=== PATIENT | male | born 1990 | race Caucasian/White ===

== ENCOUNTER → 2017-11-02 12:15 | Outpatient (CLI) | payer MEDICAID, SELFPAY ==
--- NOTE | 2017-11-02 12:21 | RAD_ITS ---
STUDY: X-RAY CHEST REASON FOR EXAM: Male, 27 years old. Cough. Chest congestion. TECHNIQUE: PA and lateral views of the chest. COMPARISON: None. FINDINGS: There is elevation of the right hemidiaphragm. Increased linear markings with areas of confluence in the right lower lobe. This may represent either atelectasis and/or early infiltrate. The left lung is clear. There is no demonstrated pleural abnormality. Normal size heart. Normal mediastinum and natalia. Normal visualized pulmonary arteries. Normal visualized aortic arch and descending thoracic aorta. Normal visualized thoracic spine. Normal visualized ribs, clavicles, and shoulders. There is no demonstrated abnormality of the visualized soft tissue structures of the upper abdomen. RAD/Chest PA and Lateral IMPRESSION: Elevation of the right hemidiaphragm with underlying atelectasis and/or infiltration at the right lung base. Electronically Signed: Eliel Garibay MD at 12:47 EDT Tel [phone], Service support ,
== END ==
LOC: MTRAD 12:19 → HPRAD 12:27
PROVIDERS: Family Provider Physician Assistant; PCP Physician Assistant; Visit Provider Physician Assistant Surgical
DX: R09.89 Other specified symptoms and signs involving the circulatory and respiratory systems (principal)
CPT/HCPCS: 71046

== ENCOUNTER → 2017-12-08 10:25 | Outpatient (CLI) | payer SELFPAY ==
--- NOTE | 2017-12-08 10:48 | RAD_ITS ---
STUDY: X-RAY CHEST REASON FOR EXAM: Male, 27 years old. Chronic cough. Shortness of breath. TECHNIQUE: PA and lateral views of the chest. COMPARISON: Comparison is made with prior study dated November 02, 2017. FINDINGS: Stable elevation of the right hemidiaphragm. Persistent increased markings at the right lung base. This may represent either infiltration, atelectasis and/or scarring. The left lung is clear. There is blunting of the left costophrenic angle. Normal size heart. Normal mediastinum and natalia. Normal visualized pulmonary arteries. Normal visualized aortic arch and descending thoracic aorta. Normal visualized thoracic spine. Normal visualized ribs, clavicles, and shoulders. There is no demonstrated abnormality of the visualized soft tissue structures of the upper abdomen. RAD/Chest PA and Lateral IMPRESSION: Stable elevation of the right hemidiaphragm with increased markings at the right lung base and blunting of the right costophrenic angle. Electronically Signed: Eliel Garibay MD at 11:10 EDT Tel [phone], Service support ,
== END ==
PROVIDERS: Family Provider Physician Assistant; Visit Provider Internal Medicine Critical Care Medicine
DX: J18.9 Pneumonia, unspecified organism (principal); R05 Cough
CPT/HCPCS: 71046

== ENCOUNTER → 2017-12-31 07:55 | Outpatient (CLI) | payer SELFPAY ==
--- NOTE | 2017-12-31 09:55 | PFT ---
INTRODUCTION: The patient is a 27-year-old male that presents for pulmonary function testing secondary to a diagnosis of cough. Respiratory therapy reports good patient effort. Bronchodilators were used during testing. INTERPRETATION: Forced expiration spirometry demonstrates no evidence of a large airways obstructive ventilatory defect. There was a significant response to aerosolized bronchodilators noted, based upon change in FEV1. Spirograms of good quality and plateau normally. The respiratory flow volume loop appears normal. Body plethysmography was performed and reveals a decreased TLC to 3.57 L, 54% of predicted, indicative of a severe restrictive ventilatory defect. The remainder of the lung volumes are symmetrically reduced. Diffusing capacity by single breath CO is mildly reduced at 63% of predicted. IMPRESSION: These pulmonary function studies demonstrate the presence of a severe restrictive ventilatory impairment with a mild reduction in diffusing capacity and significant bronchodilator response. Although clinical consideration could be given to that for underlying asthma, given the patient's bronchodilator response, one should also consider an underlying interstitial lung process, given the reduction in TLC and DLCO. There are no previous pulmonary function studies available for comparison.
== END ==
PROVIDERS: Family Provider Physician Assistant; PCP Physician Assistant; Visit Provider Nurse Practitioner Acute Care
DX: R05 Cough (principal); F17.200 Nicotine dependence, unspecified, uncomplicated
CPT/HCPCS: 94060; 94726; 94729

== ENCOUNTER 2018-02-22 08:14 | Emergency (ER) | payer SELFPAY ==
[2018-02-22 08:14] VITALS: BP 164/96; PULSE 64; RESP 20; TEMP 37.1; O2SAT 98; BMI 33.4
[2018-02-22 08:19] VITALS: O2SAT 98
--- NOTE | 2018-02-22 08:33 | ED.VISSUMM ---
- ER Visit Summary Date of Service: 02/22/18 Chief Complaint: Cough and wheezing History of Present Illness: The patient is a 27 M history of some component of asthma for which he uses an inhaler. Developed cough of clear phlegm in the last 3-4 days. With wheezing. No chest pain. No hemoptysis. No fever. Patient does smoke but is trying to quit. Physical Examination: Well-appearing male. Vital signs are stable. Afebrile. Pulse ox 98% on room air no signs of hypoxia. No distress. H EENT exam TMs not visualized due to wax. Posterior pharynx unremarkable. Moist and pink. Nasal congestion no purulent discharge. Neck nontender no lymphadenopathy. Lungs inspiratory and expiratory wheezing throughout. Equal and symmetrical. No rales or rhonchi. Heart regular rhythm rate about 70 no murmur. Abdomen soft nontender. Moving all 4 extremities. Neurovascularly intact. Test Results: EKG which showed a sinus rhythm rate is [address] or T-wave abnormalities. Emergency Department Course and Treatment: Patient has bronchitis or bronchospasm. He will be treated with DuoNeb and albuterol aerosols. Along with p.o. prednisone. Exam at 10 AM patient is doing well. Wheezing is resolved. He is comfortable being discharged home. Treatment Plan: Prednisone 40 mg a day for 10 days. Stop smoking. Use your inhaler as needed. Disposition: Discharge Impression: Bronchitis with bronchospasm This note was generated with [employer] dictation software. It may contain incorrect words, spelling, and punctuation that were not noted in review of the chart prior to signing ED Disposition - Plan for ED Patient: Disposition: Home or Assisted Living Chief Complaint: Shortness of Breath Instructions: ED Bronchitis Asthmatic Prescriptions: Prednisone [Deltasone] 40 mg PO DAILY #10 tab Referrals: Nicko Luis MD [STAFF PHYSICIAN] - 1 Week if not improving Additional Instructions: Absolutely stop smoking! Prednisone daily to decrease lung inflammation and wheezing. Usual inhaler 2 puffs every 2-4 hours as needed. Return if feeling worse or follow-up with the primary care referral Dr. Nicko Luis.
--- NOTE | 2018-02-22 08:39 | ED.DCSUM_ITS ---
- ER Visit Summary Date of Service: 02/22/18 Chief Complaint: Cough and wheezing History of Present Illness: The patient is a 27 M history of some component of asthma for which he uses an inhaler. Developed cough of clear phlegm in the last 3-4 days. With wheezing. No chest pain. No hemoptysis. No fever. Patient does smoke but is trying to quit. Physical Examination: Well-appearing male. Vital signs are stable. Afebrile. Pulse ox 98% on room air no signs of hypoxia. No distress. H EENT exam TMs not visualized due to wax. Posterior pharynx unremarkable. Moist and pink. Nasal congestion no purulent discharge. Neck nontender no lymphadenopathy. Lungs inspiratory and expiratory wheezing throughout. Equal and symmetrical. No rales or rhonchi. Heart regular rhythm rate about 70 no murmur. Abdomen soft nontender. Moving all 4 extremities. Neurovascularly intact. Test Results: EKG which showed a sinus rhythm rate is [address] or T- wave abnormalities. Emergency Department Course and Treatment: Patient has bronchitis or bronchospasm. He will be treated with DuoNeb and albuterol aerosols. Along with p.o. prednisone. Exam at 10 AM patient is doing well. Wheezing is resolved. He is comfortable being discharged home. Treatment Plan: Prednisone 40 mg a day for 10 days. Stop smoking. Use your inhaler as needed. Disposition: Discharge Impression: Bronchitis with bronchospasm This note was generated with [employer] dictation software. It may contain incorrect words, spelling, and punctuation that were not noted in review of the chart prior to signing ED Disposition - Plan for ED Patient: Disposition: Home or Assisted Living Chief Complaint: Shortness of Breath Instructions: ED Bronchitis Asthmatic Prescriptions: Prednisone [Deltasone] 40 mg PO DAILY #10 tab Referrals: Nicko Luis MD [STAFF PHYSICIAN] - 1 Week if not improving Additional Instructions: Absolutely stop smoking! Prednisone daily to decrease lung inflammation and wheezing. Usual inhaler 2 puffs every 2-4 hours as needed. Return if feeling worse or follow-up with the primary care referral Dr. Nicko Luis.
[2018-02-22] MEDS: predniSONE 20 MG Tablet 60 MG PO (08:44)
[2018-02-22 08:45] VITALS: PULSE 112; RESP 20
[2018-02-22] MEDS: Albuterol 2.5 MG/3 ML VIAL.NEB. INHALATION ×3 (08:45)
[2018-02-22] MEDS: Ipratropium/Albuterol Sulfate 3 ML AMPUL.NEB INHALATION (08:45)
--- NOTE | 2018-02-22 08:46 | ED.DEP ---
ED Disposition - Plan for ED Patient: Disposition: Home or Assisted Living Chief Complaint: Shortness of Breath Instructions: ED Bronchitis Asthmatic Prescriptions: Prednisone [Deltasone] 40 mg PO DAILY #10 tab Referrals: Nicko Luis MD [STAFF PHYSICIAN] - 1 Week if not improving Additional Instructions: Absolutely stop smoking! Prednisone daily to decrease lung inflammation and wheezing. Usual inhaler 2 puffs every 2-4 hours as needed. Return if feeling worse or follow-up with the primary care referral Dr. Nicko Luis.
[2018-02-22 10:14] VITALS: BP 136/84; PULSE 63; RESP 18; O2SAT 94
[2018-02-22 10:18] VITALS: BP 136/84; PULSE 63; RESP 18; O2SAT 94
== END 2018-02-22 10:19 | disposition home or self-care (01) ==
PROVIDERS: Emergency Provider Emergency Medicine
DX: J98.01 Acute bronchospasm (principal); J40 Bronchitis, not specified as acute or chronic; Z72.0 Tobacco use; Z79.899 Other long term (current) drug therapy
CPT/HCPCS: 94640; 99283

== ENCOUNTER 2018-08-05 20:15 | Emergency (ER) | payer SELFPAY ==
[2018-08-05] VITALS (7 sets, daily range): BP systolic 116–139; BP diastolic 57–114; PULSE 83–116; RESP 15–28; TEMP 37.2; O2SAT 85–97; BMI 33.4
--- NOTE | 2018-08-05 20:32 | ED.RN ---
PT PLACED ON 3L O2 VIA NC IN TRIAGE WITH IMPROVEMENT OF O2 SATURATION AT 90%.
--- NOTE | 2018-08-05 20:42 | RAD_ITS ---
STUDY: X-RAY CHEST REASON FOR EXAM: Male, 28 years old. Shortness of breath TECHNIQUE: PA and lateral views of the chest. COMPARISON: 12/08/2017 FINDINGS: Stable elevation right hemidiaphragm and atelectatic changes in the right base. There are superimposed monitor leads. Atelectasis in the upper lung parenchyma seen on lateral view. There is no demonstrated pleural abnormality. Normal size heart. Normal mediastinum and natalia. Normal visualized pulmonary arteries. Normal visualized aortic arch and descending thoracic aorta. Normal visualized thoracic spine. Normal visualized ribs, clavicles, and shoulders. There is no demonstrated abnormality of the visualized soft tissue structures of the upper abdomen. RAD/Chest PA and Lateral IMPRESSION: Stable elevated right hemidiaphragm with basilar atelectasis. New atelectasis in the upper lung parenchyma seen on lateral view. Electronically Signed: Fe Wong MD at 22:04 EST , Service support ,
[2018-08-05] MEDS: Ipratropium/Albuterol Sulfate 3 ML AMPUL.NEB INHALATION (20:47)
[2018-08-05 20:50] LABS: Absolute Lymphocyte Count 1.79 X10^3/ul (0.83-4.51); Basophil# 0.02 X10^3/uL; Basophil% 0.2 % (0-1); Eosinophil# 0.34 X10^3/uL; Eosinophils% 3.9 % (0-5); Hematocrit 49.1 % (40-54); Hemoglobin 16.2 g/dl (13.0-16.5); Lymphocyte # 1.79 X10^3/ul (4.0); Lymphocyte % 20.6 % (19-41); Mean Corpuscular Volume 96.8 fL (80-94); Mean Platelet Vol. 10.9 fl (6.2-12.0); Monocyte# 0.59 X10^3/uL; Monocyte% 6.8 % (0-10); Neutrophil # 5.95 X10^3/uL (2.7-7.7); Neutrophil % 68.3 % (47-70); Platelet Count 209 K/mm3 (150-450); RBC Distribution Width CV 12.9 % (11.6-14.6); RBC Distribution Width SD 45.4 fl (35.1-43.9); Red Blood Count 5.07 M/mm3 (4.6-6.2); White Blood Count 8.7 K/mm3 (4.4-11.0)
[2018-08-05] MEDS: predniSONE 20 MG Tablet 60 MG PO (20:54)
[2018-08-05 20:55] LABS: POSITIVE COUNT NO; POSITIVE DIFFERENTIAL NO; POSITIVE MORPHOLOGY NO
[2018-08-05 21:04] LABS: Anion Gap 6 (5-15); BUN 12 mg/dL (7-18); BUN/Creat Ratio 11.3 RATIO (10-20); Calcium,Total 8.5 mg/dL (8.5-10.1); Chloride 107 mmol/L (98-107); Creatinine, Serum 1.06 mg/dL (0.70-1.30); EST Glomerular Filtration Rate 87 mL/min (>60); Est Glom Filt Rate - Afr Amer 105 mL/min (>60); Estimated Creatinine Clearance 98.58 ml/min; Glucose 128 mg/dL (74-106); Potassium 4.6 mmol/L (3.5-5.1); Sodium Level 136 mmol/L (136-145)
[2018-08-05] MEDS: Albuterol 2.5 MG/3 ML VIAL.NEB. INHALATION (21:50)
--- NOTE | 2018-08-05 22:28 | ED.VISSUMM ---
- ER Visit Summary Date of Service: 08/05/18 Chief Complaint: Cough and congestion History of Present Illness: The patient is a 28 M who presents with cough and congestion that has been getting worse over the past 2 days. Patient states he feels like he is having some tightness in his chest. Patient states his breathing is worse with exertion. Patient states he is coughing up clear and yellow sputum. Patient admits to some ear pain, sore throat, and rhinorrhea. Patient also admits to subjective chills. Patient has a history of asthma and has been using his inhaler with minimal relief. Physical Examination: Vital signs are stable except for tachycardia of 116 and a tachypnea of 28. Pulse oximeter is 87% on room air. Patient is in no acute distress. Oral mucosa is pink and moist. Neck is supple. Trachea is midline. There is no JVD noted. Heart was regular and tachycardic. Lungs showed diffuse expiratory wheezing. There is good respiratory effort noted. Abdomen is soft and nontender. Cranial nerves II through XII are intact. There are no focal motor or sensory deficits noted. The remaining physical exam is within normal limits. Test Results: CBC and basic metabolic profile were within normal limits. PA and lateral chest x-ray was obtained. There is atelectasis but no acute infiltrate. Emergency Department Course and Treatment: Patient was given a DuoNeb aerosol here initially. Patient was given a repeat albuterol aerosol. Patient was given prednisone. Patient's oxygen was turned off. Patient's oxygen saturation dropped back down into the 80s. Case was discussed with the hospitalist. He will admit the patient for observation. Disposition: Admit for observation Impression: 1. Asthma exacerbation 2. Hypoxia This note was generated with [employer] dictation software. It may contain incorrect words, spelling, and punctuation that were not noted in review of the chart prior to signing ED Disposition - Plan for ED Patient: Disposition: Acute Care Hospital [facility] Diagnosis: Asthma exacerbation Instructions: ED COPD Flare Prescriptions: Prednisone [Deltasone] 60 mg PO DAILY 5 Days #15 tab Referrals: Care Physician,No Primary [Primary Care Provider] -
--- NOTE | 2018-08-05 22:34 | ED.DCSUM_ITS ---
- ER Visit Summary Date of Service: 08/05/18 Chief Complaint: Cough and congestion History of Present Illness: The patient is a 28 M who presents with cough and congestion that has been getting worse over the past 2 days. Patient states he feels like he is having some tightness in his chest. Patient states his breathing is worse with exertion. Patient states he is coughing up clear and yellow sputum. Patient admits to some ear pain, sore throat, and rhinorrhea. Patient also admits to subjective chills. Patient has a history of asthma and has been using his inhaler with minimal relief. Physical Examination: Vital signs are stable except for tachycardia of 116 and a tachypnea of 28. Pulse oximeter is 87% on room air. Patient is in no acute distress. Oral mucosa is pink and moist. Neck is supple. Trachea is midline. There is no JVD noted. Heart was regular and tachycardic. Lungs showed diffuse expiratory wheezing. There is good respiratory effort noted. Abdomen is soft and nontender. Cranial nerves II through XII are intact. There are no focal motor or sensory deficits noted. The remaining physical exam is within normal limits. Test Results: CBC and basic metabolic profile were within normal limits. PA and lateral chest x-ray was obtained. There is atelectasis but no acute infiltrate. Emergency Department Course and Treatment: Patient was given a DuoNeb aerosol here initially. Patient was given a repeat albuterol aerosol. Patient was given prednisone. Patient's oxygen was turned off. Patient's oxygen saturation dropped back down into the 80s. Case was discussed with the hospitalist. He will admit the patient for observation. Disposition: Admit for observation Impression: 1. Asthma exacerbation 2. Hypoxia This note was generated with [employer] dictation software. It may contain incorrect words, spelling, and punctuation that were not noted in review of the chart prior to signing ED Disposition - Plan for ED Patient: Disposition: Acute Care Hospital [facility] Diagnosis: Asthma exacerbation Instructions: ED COPD Flare Prescriptions: Prednisone [Deltasone] 60 mg PO DAILY 5 Days #15 tab Referrals: Care Physician,No Primary [Primary Care Provider] -
--- NOTE | 2018-08-05 22:51 | PCM.HP.STD ---
History of Present Illness The patient is a 28 year old M [] Past Medical History Medical History: Medical History (Last Reviewed 01/05/18 @ 10:35 by Gali Yarbrough FIRE PREVENTION RESEARCH ENGINEER-C) Pulmonary infiltrate in right lung on chest x-ray (Acute) R91.8 Chest congestion (Acute) R09.89 Chlamydia contact, untreated (Acute) Z20.2 Allergies No Known Allergies Allergy (Verified 08/05/18 20:17) Home Medications: Ambulatory Orders Medication Instructions Recorded albuterol sulfate HFA 90 2 puff INHALATION Q4H PRN #18 g 01/05/18 mcg/actuation aerosol inhaler fluticasone 200 mcg-vilanterol 25 1 inh INHALATION QDAY #60 ea 01/05/18 mcg/dose powder for inhalation Prednisone [Deltasone] 60 mg PO DAILY 5 Days #15 tab 08/05/18 Surgical History: Surgical History (Last Reviewed 01/05/18 @ 10:35 by Gali Yarbrough NP-C) hx of finger surgery Smoking Status: Never smoker Patient Problems: Active and Suspected Problems (Last Reviewed 01/05/18 @ 10:35 by Gali Yarbrough FI[employer] PREVENTION RESEARCH ENGINEER-C) Asthma exacerbation (Acute) - Physical Exam Vital Signs Temp Pulse Resp BP Pulse Ox 98.9 F 83 26 H 116/57 L 85 08/05/18 20:17 08/05/18 22:16 08/05/18 22:16 08/05/18 22:16 08/05/18 22:35 Oxygen Delivery Method Room Air Weight: 99.79 kg Body Mass Index (BMI) 33.4 Laboratory Tests Past 24 Hrs 08/05/18 08/05/18 20:32 20:32 WBC 8.7 RBC 5.07 Hgb 16.2 Hct 49.1 MCV 96.8 H MCH 32.0 MCHC 33.0 RDW 12.9 RDW Differential 45.4 H Plt Count 209 MPV 10.9 Immature Gran % (Auto) 0.200 Neut % (Auto) 68.3 Lymph % (Auto) 20.6 Greer % (Auto) 6.8 Eos % (Auto) 3.9 Baso % (Auto) 0.2 Absolute Neuts (auto) 6.0 Absolute Lymphs (auto) 1.79 Total Counted Not Reportable Sodium 136 Potassium 4.6 Chloride 107 Carbon Dioxide 23.0 Anion Gap 6 BUN 12 Creatinine 1.06 Estim Creat Clear Calc 98.58 Est GFR (MDRD) Af Amer 105 Est GFR (MDRD) Non-Af 87 BUN/Creatinine Ratio 11.3 Glucose 128 H Calcium 8.5 Assessment/Plan All Active Problems (Last Reviewed 01/05/18 @ 10:35 by Gali Yarbrough, FI[employer] PREVENTION RESEARCH ENGINEER-C) Asthma exacerbation (Acute) Daytime hypersomnia (Acute) Tobacco abuse (Acute) Depression (Acute) Asthma (Acute) Pulmonary infiltrate in right lung on chest x-ray (Acute) Chest congestion (Acute) Chlamydia contact, untreated (Acute)
== END 2018-08-05 23:34 | disposition left against medical advice (07) ==
PROVIDERS: Emergency Provider Emergency Medicine
DX: J45.901 Unspecified asthma with (acute) exacerbation (principal); R09.02 Hypoxemia; J02.9 Acute pharyngitis, unspecified; R51 Headache; H92.09 Otalgia, unspecified ear; Z72.0 Tobacco use
CPT/HCPCS: 71046; 80048; 85025; 94640; 99283

== ENCOUNTER 2018-08-07 16:10 | Inpatient (IN) | payer SELFPAY ==
[2018-08-05 20:17] VITALS: BMI 33.4
[2018-08-07] VITALS (10 sets, daily range): BP systolic 121–159; BP diastolic 63–95; PULSE 67–152; RESP 18–36; TEMP 36.8–37; O2SAT 86–96; BMI 34.4; BMI 33.5; BMI 33.6
--- NOTE | 2018-08-07 16:21 | EKG12_ITS ---
Test Reason : SOB Blood Pressure : / mmHG Vent. Rate : 135 BPM Atrial Rate : 135 BPM P-R Int : 126 ms QRS Dur : 076 ms QT Int : 282 ms P-R-T Axes : 056 -27 047 degrees QTc Int : 423 ms Sinus tachycardia Otherwise normal ECG Confirmed by GABRIELA HARRIS, SISSY ([id number]), photograph editor LILIAN PAIGE ([id number]) on 08/09/2018 5:00:51 PM Referred By: FREDY/RASHMI Confirmed By:SISSY OCHOA MD
--- NOTE | 2018-08-07 16:21 | RAD_ITS ---
STUDY: X-RAY CHEST REASON FOR EXAM: Male, 28 years old. Shortness of breath, worsening TECHNIQUE: AP COMPARISON: 08/05/2018 FINDINGS: The lungs continue to be underexpanded with reticular densities adjacent to the natalia and in the lung bases, similar since the prior study. Right hemidiaphragm remains elevated. There is no demonstrated pleural abnormality. Normal size heart. Normal mediastinum and natalia. Normal visualized pulmonary arteries. Normal visualized aortic arch and descending thoracic aorta. Normal visualized thoracic spine. Normal visualized ribs, clavicles, and shoulders. There is no demonstrated abnormality of the visualized soft tissue structures of the upper abdomen. RAD/Chest 1 View (Portable) IMPRESSION: 1. Stable exam. Hypoinflation and bilateral atelectasis. Electronically Signed: Keshawn Bronson MD at 16:45 EST , Service support ,
[2018-08-07] MEDS: Albuterol 2.5 MG/3 ML VIAL.NEB. INHALATION ×4 (16:25→18:45)
[2018-08-07] MEDS: MethylPREDNISolone 125 MG/2 ML Vial IV (16:25)
[2018-08-07] MEDS: Ipratropium/Albuterol Sulfate 3 ML AMPUL.NEB INHALATION (16:26)
[2018-08-07 16:40] LABS: Absolute Lymphocyte Count 2.02 X10^3/ul (0.83-4.51); Absolute Neutrophil Count 15.9 X10^3/uL (2.0-7.7); Basophil# 0.01 X10^3/uL; Basophil% 0.1 % (0-1); Hematocrit 49.1 % (40-54); Hemoglobin 16.1 g/dl (13.0-16.5); Lymphocyte # 2.02 X10^3/ul (4.0); Lymphocyte % 10.8 % (19-41); Mean Corp Hgb Conc 32.8 g/gl (32-36); Mean Corpuscular Hgb 31.1 pg (27.0-32.0); Mean Corpuscular Volume 94.8 fL (80-94); Mean Platelet Vol. 10.8 fl (6.2-12.0); Monocyte# 0.76 X10^3/uL; Monocyte% 4.1 % (0-10); Neutrophil # 15.85 X10^3/uL (2.7-7.7); Neutrophil % 84.6 % (47-70); Platelet Count 328 K/mm3 (150-450); RBC Distribution Width CV 12.6 % (11.6-14.6); RBC Distribution Width SD 43.7 fl (35.1-43.9); Red Blood Count 5.18 M/mm3 (4.6-6.2); White Blood Count 18.7 K/mm3 (4.4-11.0)
[2018-08-07 16:41] LABS: POSITIVE COUNT NO; POSITIVE DIFFERENTIAL NO; POSITIVE MORPHOLOGY NO
[2018-08-07 16:46] LABS: Anion Gap 10 (5-15); BUN 20 mg/dL (7-18); BUN/Creat Ratio 16.5 RATIO (10-20); Calcium,Total 9.5 mg/dL (8.5-10.1); Chloride 104 mmol/L (98-107); Creatinine, Serum 1.21 mg/dL (0.70-1.30); EST Glomerular Filtration Rate 75 mL/min (>60); Est Glom Filt Rate - Afr Amer 91 mL/min (>60); Estimated Creatinine Clearance 86.36 ml/min; Glucose 136 mg/dL (74-106); Potassium 4.1 mmol/L (3.5-5.1); Sodium Level 139 mmol/L (136-145)
[2018-08-07 17:11] LABS: Magnesium 1.9 mg/dL (1.6-2.6)
--- NOTE | 2018-08-07 17:47 | PCM.HP.STD ---
<Obdulio Vasquez - Last Filed: 08/07/18 17:47> Problem List (1) Asthma exacerbation Status: Acute (2) Obesity Status: Chronic (3) Tobacco abuse Status: Chronic (4) Depression Status: Chronic History of Present Illness Date of Admission: 08/07/18 Chief Complaint: SOB The patient is a 28 year old M with pmhx of asthma who presented to the ER with SOB. This began Wednesday. He reports feeling like he had a cold with congestion cough, sore throat, and chills. He came to the ER and left AMA with prednisone. He did take the prednisone but failed to improve and came back to the ER. He was hypoxic at 86% requiring 6 lpm to maintain good sats. He follows Dr. Terry for asthma. Normally he only uses an albuterol inhaler. He continues to smoke 1-2 packs per day. He reports his friend is sick with similar issues and he thinks they gave it to each other. [] Past Medical History Past Medical History (Chronic Problems): Chronic Problems (Last Reviewed 01/05/18 @ 10:35 by Gali Yarbrough NP-Manpreet) Obesity (Chronic) Tobacco abuse (Chronic) Depression (Chronic) Medical History: Medical History (Last Reviewed 01/05/18 @ 10:35 by Gali Yarbrough NP-C) Pulmonary infiltrate in right lung on chest x-ray (Acute) R91.8 Chest congestion (Acute) R09.89 Chlamydia contact, untreated (Acute) Z20.2 Allergies No Known Allergies Allergy (Verified 08/07/18 16:11) Home Medications: Ambulatory Orders Medication Instructions Recorded albuterol sulfate HFA 90 2 puff INHALATION Q4H PRN #18 g 01/05/18 mcg/actuation aerosol inhaler fluticasone 200 mcg-vilanterol 25 1 inh INHALATION QDAY #60 ea 01/05/18 mcg/dose powder for inhalation predniSONE tablet 60 mg PO DAILY #15 tab 08/05/18 Surgical History: Surgical History (Last Reviewed 01/05/18 @ 10:35 by Gali Yarbrough NP-C) hx of finger surgery Surgical History: no surgical history Psychiatric History: Depression Lives: With Family Smoking Status: Heavy Smoker (>10/day) Tobacco Use: Cigarettes Alcohol: Occasional Drugs: None - *Family History Maternal Family History: Family History (Last Reviewed 01/05/18 @ 10:35 by BRANDO Honeycutt) Other Cancer Colon cancer History Items: No pertinent history Paternal Family History: Family History (Last Reviewed 01/05/18 @ 10:35 by BRANDO Honeycutt) Other Cancer Colon cancer History Items: No pertinent history Review of Systems Constitutional: Reports: Chills. Denies: Fever, Weight Change HEENT: Denies: Head Aches, Sinus Congestion, Sinus Drainage Cardiovascular: Denies: Chest Pain, Edema, Heaviness, Light Headedness, Palpitations, Syncope Respiratory: Reports: Cough, Shortness of Breath, Shortness of breath at rest, Shortness of breath upon exertion, Wheezing. Denies: Sputum production Gastrointestinal: Denies: Abdominal Pain, Nausea, Vomiting Genitourinary: Denies: Dysuria Musculoskeletal: Denies: Joint Pain, Joint Tenderness Skin: Denies: Rash, Wounds Neurological: Denies: Numbness, Tingling, Focal weakness Psychiatric: Denies: Anxiety, Depression, Homicidal Ideations, Suicidal Ideations Hematologic/ Lymphatic: Denies: Easy Bruising, Easy Bleeding VTE Information - Inpt Only VTE Present on Admission: No VTE Mechan Device Prophylaxis: None VTE Pharm Prophylaxis ordered?: No Reason prophylaxis not ordered:: Procedure Not Indicated - Physical Exam General: Alert, Oriented x3, Cooperative HEENT: Atraumatic, PERRLA, EOMI, Normocephalic Neck: Supple, No JVD, Negative Carotid Bruits Lungs: Wheezes Cardiovascular: Regular rate, No murmurs Abdomen: Bowel Sounds Present, Soft, Non Tender, Obese Extremities: No edema, Capillary Refill Less than 3 Seconds Skin: No rashes, No breakdown Musculoskeletal: No Tenderness to Palpation of Joints or Extremities Neurological: Cranial nerves II-XII grossly intact Psych/Mental Status: Normal Affect, Appropriate, Alert and oriented to time, place, person, mood and affect Vital Signs Temp Pulse Resp BP Pulse Ox 98.5 F 111 H 21 H 121/73 H 95 08/07/18 17:30 08/07/18 17:30 08/07/18 17:30 08/07/18 17:30 08/07/18 17:30 Oxygen Flow Rate (L/min) 4 Oxygen Delivery Method Nasal Cannula Weight: 226 lb 3.108 oz Body Mass Index (BMI) 34.4 Laboratory Tests Past 24 Hrs 08/07/18 08/07/18 08/07/18 16:20 16:20 16:20 WBC 18.7 H RBC 5.18 Hgb 16.1 Hct 49.1 MCV 94.8 H MCH 31.1 MCHC 32.8 RDW 12.6 RDW Differential 43.7 Plt Count 328 MPV 10.8 Immature Gran % (Auto) 0.400 Neut % (Auto) 84.6 H Lymph % (Auto) 10.8 L [place] % (Auto) 4.1 Eos % (Auto) 0.0 Baso % (Auto) 0.1 Absolute Neuts (auto) 15.9 H Absolute Lymphs (auto) 2.02 Total Counted Not Reportable Sodium 139 Potassium 4.1 Chloride 104 Carbon Dioxide 25.0 Anion Gap 10 BUN 20 H Creatinine 1.21 Estim Creat Clear Calc 86.36 Est GFR (MDRD) Af Amer 91 Est GFR (MDRD) Non-Af 75 BUN/Creatinine Ratio 16.5 Glucose 136 H Calcium 9.5 Magnesium 1.9 Assessment/Plan All Active Problems (Last Reviewed 01/05/18 @ 10:35 by Gali Yarbrough NP-Manpreet) Asthma exacerbation (Acute) Daytime hypersomnia (Acute) Asthma (Acute) Pulmonary infiltrate in right lung on chest x-ray (Acute) Chest congestion (Acute) Chlamydia contact, untreated (Acute) 1. Acute hypoxic resp failure 2/2 Acute asthma exacerbation - hypoxic requiring 6 lpm to maintain good sats. admit to Med/Surg. continue IV solumedrol and aerosols. Likely viral syndrome based on hx. CXR neg. WBC elevated but he has been on prednisone. No fever. Add IS. 2. Nicotine abuse - heavy smoker 1-2 ppd. Patch if desired 3. Obesity - dietary eval DVT ppx: early ambulation This patient was seen by Obdulio Vasquez PA-C under the supervision of Dr. Cui. <Paxton Cui - Last Filed: 08/07/18 19:06> History of Present Illness The patient is a 28 year old M [] Past Medical History Medical History: Medical History (Last Reviewed 01/05/18 @ 10:35 by NATHANAEL HoneycuttC) Pulmonary infiltrate in right lung on chest x-ray (Acute) R91.8 Chest congestion (Acute) R09.89 Chlamydia contact, untreated (Acute) Z20.2 Allergies No Known Allergies Allergy (Verified 08/07/18 16:11) Surgical History: Surgical History (Last Reviewed 01/05/18 @ 10:35 by BRANDO Honeycutt) hx of finger surgery - *Family History Maternal Family History: Family History (Last Reviewed 01/05/18 @ 10:35 by BRANDO Honeycutt) Other Cancer Colon cancer Paternal Family History: Family History (Last Reviewed 01/05/18 @ 10:35 by BRANDO Honeycutt) Other Cancer Colon cancer - Physical Exam Vital Signs Temp Pulse Resp BP Pulse Ox 98.5 F 109 H 22 H 121/73 H 95 08/07/18 17:30 08/07/18 18:45 08/07/18 18:45 08/07/18 17:30 08/07/18 17:30 Oxygen Flow Rate (L/min) 4 Oxygen Delivery Method Nasal Cannula Weight: 226 lb 3.108 oz Body Mass Index (BMI) 34.4 Laboratory Tests Past 24 Hrs 08/07/18 08/07/18 08/07/18 16:20 16:20 16:20 WBC 18.7 H RBC 5.18 Hgb 16.1 Hct 49.1 MCV 94.8 H MCH 31.1 MCHC 32.8 RDW 12.6 RDW Differential 43.7 Plt Count 328 MPV 10.8 Immature Gran % (Auto) 0.400 Neut % (Auto) 84.6 H Lymph % (Auto) 10.8 L [place] % (Auto) 4.1 Eos % (Auto) 0.0 Baso % (Auto) 0.1 Absolute Neuts (auto) 15.9 H Absolute Lymphs (auto) 2.02 Total Counted Not Reportable Sodium 139 Potassium 4.1 Chloride 104 Carbon Dioxide 25.0 Anion Gap 10 BUN 20 H Creatinine 1.21 Estim Creat Clear Calc 86.36 Est GFR (MDRD) Af Amer 91 Est GFR (MDRD) Non-Af 75 BUN/Creatinine Ratio 16.5 Glucose 136 H Calcium 9.5 Magnesium 1.9 Code Visit Addendum: Dr. Cui I personally examined the patient and reviewed the chart. I agree with the above.-year-old male with a history of asthma, presented on Wednesday with an asthma exacerbation however left in the ER AMA because he had a work on Wednesday. He presents back to the hospital because he is continued shortness of breath. He was found to be very restricted and initially was on a Ventimask. He was given multiple albuterol inhalers as well as an Atrovent inhaler and a DuoNeb inhaler while here. He is also been taking steroids for the last day or so on top of the steroids he had gotten in the ER on Wednesday. However his restrict status was not improving as well much as was expected and therefore was also given a dose of mag sulfate in the ER. Will admit to PCU for further nebulizer therapies as well as IV Solu-Medrol. Inpatient E&M: 39947 Init Hosp L2
--- NOTE | 2018-08-07 18:32 | ED.DCSUM_ITS ---
- ER Visit Summary Date of Service: 08/07/18 Chief Complaint: Dyspnea History of Present Illness: The patient is a 28 M who presents the emergency department with respiratory distress. Patient has a history of asthma. He was seen in the emergency department on and signed out AGAINST MEDICAL ADVICE after his felt he required admission for hypoxemia. Today he is worsening and has not gotten relief with his inhalers. He is on Flovent and albuterol. He has been taking prednisone. No fevers. Physical Examination: Afebrile noted tachycardia hypoxemia and tachypnea Gen: Well-nourished well-developed Head: Normocephalic atraumatic Eyes: Perrl EOMI ENT: TMs clear no rhinorrhea moist mucous membranes Neck: Supple no lymphadenopathy no JVD nontender CVS: Regular rate tachycardia rhythm no murmurs normal S1-S2 Respiratory: Patient is in moderate to severe respiratory distress. Increased accessory muscle use. He has significantly diminished breath sounds with faint expiratory wheeze Abdomen: Soft nontender nondistended normal bowel sounds no masses Back: Nontender Extremity: Nontender no edema Skin: Normal color no rash he is sweaty Neuro: alert orientated ?3 CN II-XII intact normal strength sensation reflexes gait cerebellar Psych: Normal affect normal mood Test Results: Chest x-ray showed a chronically elevated hemidiaphragm. CBC BMP with a leukocytosis. Emergency Department Course and Treatment: Leukocytosis most likely stress demargination as well as steroid treatments. Patient received breathing treatments and is improved but he continues to have labored breathing. His lung auscultation shows increased aeration and increased wheezing. Patient received magnesium as well as Solu-Medrol. Patient will be admitted into the hospital. Impression: 1. Acute asthma exacerbation 2. Acute respiratory failure 3. Hypoxemia 4. Critical care time 35 minutes This note was generated with [employer] dictation software. It may contain incorrect words, spelling, and punctuation that were not noted in review of the chart prior to signing ED Disposition - Plan for ED Patient: Referrals: Care Physician,No Primary [Primary Care Provider] -
--- NOTE | 2018-08-07 18:49 | ED.RN ---
[address] CARABALLO THE ADMINISTRATION OF MAG. WANTED OVER 20 MINUTES FOR BRONCHOSPASMS. MAGNESIUM INFUSION INCREASED TO 20 MINUTES.
--- NOTE | 2018-08-07 19:04 | ED.RN ---
BEDSIDE REPORT COMPLETED. PT STILL DOES NOT HAVE ORDER FOR ADMISSION OR ROOM ORDER. CHARGE NURSE ASKED AND SHE ADVISED ME TO GET ORDER FROM ED MD. WILL ASK WHEN AVAILABLE.
[2018-08-07] MEDS: Acetaminophen 325 MG Tablet 650 MG PO (20:40)
[2018-08-07] MEDS: 0.9% NaCl Peripheral Flush Adult/Peds IV (21:53)
[2018-08-08] VITALS (17 sets, daily range): BP systolic 123–145; BP diastolic 58–85; PULSE 60–90; RESP 16–20; TEMP 36.5–37.1; O2SAT 88–97
[2018-08-08] MEDS: 0.9% NaCl Peripheral Flush Adult/Peds IV ×3 (05:14→22:50)
[2018-08-08 05:30] LABS: Absolute Lymphocyte Count 1.01 X10^3/ul (0.83-4.51); Absolute Neutrophil Count 12.1 X10^3/uL (2.0-7.7); Basophil# 0.01 X10^3/uL; Basophil% 0.1 % (0-1); Hematocrit 44.6 % (40-54); Hemoglobin 14.6 g/dl (13.0-16.5); Lymphocyte # 1.01 X10^3/ul (4.0); Lymphocyte % 7.5 % (19-41); Mean Corp Hgb Conc 32.7 g/gl (32-36); Mean Corpuscular Hgb 31.2 pg (27.0-32.0); Mean Corpuscular Volume 95.3 fL (80-94); Mean Platelet Vol. 10.6 fl (6.2-12.0); Monocyte# 0.36 X10^3/uL; Monocyte% 2.7 % (0-10); Neutrophil # 12.06 X10^3/uL (2.7-7.7); Neutrophil % 89.5 % (47-70); Platelet Count 230 K/mm3 (150-450); RBC Distribution Width CV 12.4 % (11.6-14.6); RBC Distribution Width SD 42.5 fl (35.1-43.9); Red Blood Count 4.68 M/mm3 (4.6-6.2); White Blood Count 13.5 K/mm3 (4.4-11.0)
[2018-08-08 05:47] LABS: Anion Gap 10 (5-15); BUN 16 mg/dL (7-18); BUN/Creat Ratio 17.3 RATIO (10-20); Calcium,Total 8.3 mg/dL (8.5-10.1); Chloride 105 mmol/L (98-107); Creatinine, Serum 0.92 mg/dL (0.70-1.30); EST Glomerular Filtration Rate 102 mL/min (>60); Est Glom Filt Rate - Afr Amer 124 mL/min (>60); Estimated Creatinine Clearance 113.59 ml/min; Glucose 140 mg/dL (74-106); Potassium 4.3 mmol/L (3.5-5.1); Sodium Level 139 mmol/L (136-145)
[2018-08-08 06:11] LABS: POSITIVE COUNT NO; POSITIVE DIFFERENTIAL NO; POSITIVE MORPHOLOGY NO
[2018-08-08] MEDS: Ipratropium/Albuterol Sulfate 3 ML AMPUL.NEB INHALATION ×5 (06:50→19:39)
--- NOTE | 2018-08-08 13:45 | CASEMGMT ---
IZAIAH LOGAN assessment: Face to Face with patient for initial transition planning/care coordination assessment. IZAIAH LOGAN introduced self and role at [facility], pt voices understanding and consents to assessment at this time. Pt is sitting up in bed in no distress at this time. Pt is A/Ox4 at this time and answers all questions appropriately at this time. Care providers, pharmacy, and demographics verified at this time. PCP: Pt states does not currently have PCP. List provided to pt at this time. Specialists: Pt states currently has no specialists. Preferred [facility]acy: [facility] Insurance: Pt states does not have health insurance but states that his employer will cover 100% of the costs. Prescription Benefit: None Living Will/HPOA: Pt states does not have LW/HPOA and declines info at this time. LNOK: Latia Hilario, ; Lizbeth Blanton, mother Living Arrangements: Pt states lives with in 2 story home and states no concerns at home at this time. Pt states is independent with ADL's. Transportation: Pt states drives self and states no transportation concerns at this time. DME/HHC: Pt states does not have any current DME or need for any at this time. Pt states no hx of HHC or SNF. Pt states no concerns with going home at time of discharge. 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 Pt states did smoke 1-2packs/day but states last smoked on 08/05/18 and does not plan on smoking again at this time. Pt states does not drink ETOH. CM to follow for any further discharge planning/needs. Advised pt to ask for CM if any further questions/concerns/needs arise, voices understanding. Plan: [place] IZAIAH LOGAN
--- NOTE | 2018-08-08 13:58 | PN_ITS ---
<Obdulio Vasquez - Last Filed: 08/08/18 13:53> Subjective: Pt attempted to be weaned off O2 today but desaturated. Pt expressing confusion about why this event happened to him. Explained the concern about his asthma being poorly controlled, his need for pulmonary follow up, and need for smoking cessation. He states he does not feel the need for cigarettes now and does not want the patch, he is considering talking to his doctor about chantix. He has no fevers or chills. He is still wheezy and coughing. Resp panel shows rhinovirus. - Physical Exam General: Alert, Oriented x3, Cooperative HEENT: Atraumatic, PERRLA, EOMI, Normocephalic Neck: Supple, No JVD, Negative Carotid Bruits Lungs: Wheezes Cardiovascular: Regular rate, No murmurs Abdomen: Bowel Sounds Present, Soft, Non Tender, Obese Extremities: No edema, Capillary Refill Less than 3 Seconds Skin: No rashes, No breakdown Musculoskeletal: No Tenderness to Palpation of Joints or Extremities Neurological: Cranial nerves II-XII grossly intact Psych/Mental Status: Normal Affect, Appropriate Vital Signs Temp Pulse Resp BP Pulse Ox 98.0 F 61 16 130/70 H 97 08/08/18 13:12 08/08/18 13:12 08/08/18 13:12 08/08/18 13:12 08/08/18 13:12 Oxygen Flow Rate (L/min) 2 Oxygen Delivery Method Nasal Cannula Weight: 220 lb 7.396 oz Body Mass Index (BMI) 33.5 Intake and Output for Last 24 Hours 08/06/18 08/07/18 08/08/18 23:59 23:59 23:59 Intake Total 1000 / 1000 1760 / 1760 Balance 1000 / 1000 1760 / 1760 Microbiology Past 72 Hours 08/07/18 20:33 Respiratory Panel (PCR) - Final Mucosa - Nose Rhinovirus 08/07/18 20:33 Influenza Types A,B Direct FA (MAGGIE) - Final Mucosa - Nose Laboratory Tests Past 24 Hrs 08/07/18 08/07/18 08/07/18 16:20 16:20 16:20 WBC 18.7 H RBC 5.18 Hgb 16.1 Hct 49.1 MCV 94.8 H MCH 31.1 MCHC 32.8 RDW 12.6 RDW Differential 43.7 Plt Count 328 MPV 10.8 Immature Gran % (Auto) 0.400 Neut % (Auto) 84.6 H Lymph % (Auto) 10.[address] [place] % (Auto) 4.1 Eos % (Auto) 0.0 Baso % (Auto) 0.1 Absolute Neuts (auto) 15.9 H Absolute Lymphs (auto) 2.02 Total Counted Not Reportable Sodium 139 Potassium 4.1 Chloride 104 Carbon Dioxide 25.0 Anion Gap 10 BUN 20 H Creatinine 1.21 Estim Creat Clear Calc 86.36 Est GFR (MDRD) Af Amer 91 Est GFR (MDRD) Non-Af 75 BUN/Creatinine Ratio 16.5 Glucose 136 H Calcium 9.5 Magnesium 1.9 08/08/18 08/08/18 05:18 05:18 WBC 13.5 H RBC 4.68 Hgb 14.6 Hct 44.6 MCV 95.3 H MCH 31.2 MCHC 32.7 RDW 12.4 RDW Differential 42.5 Plt Count 230 MPV 10.6 Immature Gran % (Auto) 0.200 Neut % (Auto) 89.5 H Lymph % (Auto) 7.[address] [place] % (Auto) 2.7 Eos % (Auto) 0.0 Baso % (Auto) 0.1 Absolute Neuts (auto) 12.1 H Absolute Lymphs (auto) 1.01 Total Counted Not Reportable Sodium 139 Potassium 4.3 Chloride 105 Carbon Dioxide 24.0 Anion Gap 10 BUN 16 Creatinine 0.92 Estim Creat Clear Calc 113.59 Est GFR (MDRD) Af Amer 124 Est GFR (MDRD) Non-Af 102 BUN/Creatinine Ratio 17.3 Glucose 140 H Calcium 8.3 L Magnesium Medical Necessity - Tobacco Use Smoking Status: Heavy Smoker (>10/day) Tobacco Use: Cigarettes Assessment/Plan All Active Problems (Last Reviewed 01/05/18 @ 10:35 by Gali Yarbrough NP-C) Asthma exacerbation (Acute) Daytime hypersomnia (Acute) Asthma (Acute) Pulmonary infiltrate in right lung on chest x-ray (Acute) Chest congestion (Acute) Chlamydia contact, untreated (Acute) 1. Acute hypoxic resp failure 2/2 Acute asthma exacerbation 2/2 Acute viral syndrome - rhinovirus- hypoxic requiring 6 lpm to maintain good sats. Weaned to 2. Plan to wean to off. admit to Med/Surg. continue IV solumedrol and aerosols. + Rhinovirus. CXR neg. WBC elevated but he has been on prednisone. No fever. Add IS. Add agent at DC and o/p pulm follow up. 2. Nicotine abuse - heavy smoker 1-2 ppd. Patch if desired Counseled on importance of cessation and strategies for cessation 3. Obesity - dietary eval DVT ppx: early ambulation DC planning: wean o2. Pulm f/u as outpatient. This patient was seen by Obdulio Vasquez PA-C under the supervision of Dr. Hobbs. <Jaylin Hobbs - Last Filed: 08/08/18 16:00> - Physical Exam Vital Signs Temp Pulse Resp BP Pulse Ox 98.0 F 79 20 H 130/70 H 97 08/08/18 13:12 08/08/18 14:59 08/08/18 13:38 08/08/18 13:12 08/08/18 13:12 Oxygen Flow Rate (L/min) 2 Oxygen Delivery Method Nasal Cannula Weight: 220 lb 7.396 oz Body Mass Index (BMI) 33.5 Intake and Output for Last 24 Hours 08/06/18 08/07/18 08/08/18 23:59 23:59 23:59 Intake Total 1000 / 1000 1760 / 1760 Balance 1000 / 1000 1760 / 1760 Microbiology Past 72 Hours 08/07/18 20:33 Respiratory Panel (PCR) - Final Mucosa - Nose Rhinovirus 08/07/18 20:33 Influenza Types A,B Direct FA (MAGGIE) - Final Mucosa - Nose Laboratory Tests Past 24 Hrs 08/07/18 08/07/18 08/07/18 16:20 16:20 16:20 WBC 18.7 H RBC 5.18 Hgb 16.1 Hct 49.1 MCV 94.8 H MCH 31.1 MCHC 32.8 RDW 12.6 RDW Differential 43.7 Plt Count 328 MPV 10.8 Immature Gran % (Auto) 0.400 Neut % (Auto) 84.6 H Lymph % (Auto) 10.[address] [place] % (Auto) 4.1 Eos % (Auto) 0.0 Baso % (Auto) 0.1 Absolute Neuts (auto) 15.9 H Absolute Lymphs (auto) 2.02 Total Counted Not Reportable Sodium 139 Potassium 4.1 Chloride 104 Carbon Dioxide 25.0 Anion Gap 10 BUN 20 H Creatinine 1.21 Estim Creat Clear Calc 86.36 Est GFR (MDRD) Af Amer 91 Est GFR (MDRD) Non-Af 75 BUN/Creatinine Ratio 16.5 Glucose 136 H Calcium 9.5 Magnesium 1.9 08/08/18 08/08/18 05:18 05:18 WBC 13.5 H RBC 4.68 Hgb 14.6 Hct 44.6 MCV 95.3 H MCH 31.2 MCHC 32.7 RDW 12.4 RDW Differential 42.5 Plt Count 230 MPV 10.6 Immature Gran % (Auto) 0.200 Neut % (Auto) 89.5 H Lymph % (Auto) 7.[address] [place] % (Auto) 2.7 Eos % (Auto) 0.0 Baso % (Auto) 0.1 Absolute Neuts (auto) 12.1 H Absolute Lymphs (auto) 1.01 Total Counted Not Reportable Sodium 139 Potassium 4.3 Chloride 105 Carbon Dioxide 24.0 Anion Gap 10 BUN 16 Creatinine 0.92 Estim Creat Clear Calc 113.59 Est GFR (MDRD) Af Amer 124 Est GFR (MDRD) Non-Af 102 BUN/Creatinine Ratio 17.3 Glucose 140 H Calcium 8.3 L Magnesium Assessment/Plan Patient seen by Obdulio Vasquez PA-C under my supervision. Patient seen and examined. He was admitted with a complaint of shortness of breath and managed for acute hypoxic respiratory failure due to acute asthma exacerbation. There is also present stated by upper respiratory tract infection due to rhinovirus infection. He was initially requiring 6 L/min but is now down to 2 L/min. He is not on home oxygen at home. Patient seen and examined. He felt much better. He still has occasional wheezing and denies any cough or chest pain, palpitations, dizziness, abdominal pain, diarrhea vomiting. Review of systems otherwise negative. Patient states that he uses his albuterol virtually every day was last admitted for acute asthma exacerbation about a year ago. He thinks that he may have a preventative inhaler but cannot remember the name of it and does not take it. 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 o/e Vital Signs Height 5 ft 8 in Weight: 220 lb 7.396 oz Weight in Pounds 220.5 lbs Pulse Ox 97 Temperature 98.0 F Pulse Rate 79 Respiratory Rate 20 Blood Pressure 130/70 Blood Pressure Position Semi-Fowlers General: Alert, Oriented x3, Cooperative HEENT: Atraumatic, PERRLA, EOMI, Normocephalic Neck: Supple, No JVD, Negative Carotid Bruits Lungs: mild wheezing in all lung [place] bilaterally, on 2L of oxygen Cardiovascular: Regular rate, No murmurs Abdomen: Bowel Sounds Present, Soft, Non Tender, Obese Extremities: No edema, Capillary Refill Less than 3 Seconds Skin: No rashes, No breakdown Musculoskeletal: No Tenderness to Palpation of Joints or Extremities Neurological: Cranial nerves II-XII grossly intact Psych/Mental Status: Normal Affect, Appropriate Plan is to wean off of oxygen. Attempts to wean him off oxygen today were unsuccessful as he desaturated. To continue with steroids. Patient counseled strongly to quit. Review of patient's home meds showed that he is on fluticasone-Vilanterol inhaler at home but he does not use it. Will give a prescription for this on discharge. Continue breathing treatments and steroids. Rest of management as per Obdulio Vasquez PA-C's note which I reviewed and agree with. Code Visit Inpatient E&M: 99676 Subs Hosp L3
[2018-08-08] MEDS: Acetaminophen 325 MG Tablet 650 MG PO (17:03)
[2018-08-09] VITALS (10 sets, daily range): BP systolic 114–149; BP diastolic 47–99; PULSE 65–93; RESP 16–18; TEMP 36.7–36.9; O2SAT 88–96
[2018-08-09] MEDS: Ipratropium/Albuterol Sulfate 3 ML AMPUL.NEB INHALATION ×2 (06:43→10:46)
[2018-08-09] MEDS: 0.9% NaCl Peripheral Flush Adult/Peds IV (06:54)
--- NOTE | 2018-08-09 10:28 | DCINST_ITS ---
- Discharge Diagnoses Current Active Problems: Current Active and Chronic Problems (Last Reviewed 01/05/18 @ 10:35 by BRANDO Honeycutt) Obesity (Chronic) You will use the following diet at home:: No restrictions Your food should be the consistency of: Regular Your liquids should be the consistency of: Regular/Thin Discharge Activity: Return to Normal Activity Allergies/Adverse Reactions: Allergies No Known Allergies Allergy (Verified 08/07/18 19:59) Medications to take at Discharge Albuterol Sulfate [Proventil Hfa] 2 puff INHALATION Q4H PRN PRN #1 inhaler 08/09/18 Fluticasone/Vilanterol [Breo Ellipta 200-25 Mcg INH] 1 inh INHALATION QDAY #1 inhaler 08/09/18 Prednisone 10 mg PO UD #30 tab 08/09/18 The following prescriptions were given: Albuterol Sulfate [Proventil Hfa] 2 puff INHALATION Q4H PRN PRN #1 inhaler PRN Reason: shortness of breath or wheezing Fluticasone/Vilanterol [Breo Ellipta 200-25 Mcg INH] 1 inh INHALATION QDAY #1 inhaler Prednisone 10 mg PO UD #30 tab Primary Care Physician: Care Physician,No Primary [Primary Care Provider] - Please follow up with your Primary Care Physician in: 1-2 weeks Test Results: Test results from this visit will be discussed in further detail at your follow- up appointment, if applicable. Please Follow Up With: Emiliano Terry DO When: 1 week Proposed Discharge Date: 08/09/18
--- NOTE | 2018-08-09 11:00 | CASEMGMT ---
Addendum entered by Ana Pena 08/09/18 12:05: Pt walked again for home oxygen and does not qualify at this time. Robert BLISS CM Original Note: Pt provided with list of PCP's and Rx [facility] assist pamphlet at this time. Pt also requests to be walked again for oxygen as he feels he will pass this time. Heather BLISS aware and voices understanding. Pt states that he will make f/u appt with new PCP remy. Robert BLISS CM
--- NOTE | 2018-08-09 11:05 | CASEMGMT ---
Patient does not have insurance. His boss pays for his hospital bill, but not his medications. He is supposed to be on Breo, but he cannot afford it. Utilized [facility] prescription assistance program. He was also given information on Prescription [facility]. Alpa MEDEL MSW
[2018-08-09] MEDS: Acetaminophen 325 MG Tablet 650 MG PO (11:26)
[2018-08-09] MEDS: Famotidine 20 MG Tablet PO (11:26)
--- NOTE | 2018-08-09 13:29 | DS.PCM_ITS ---
<Obdulio Vasquez - Last Filed: 08/09/18 13:24> Discharge Date and Diagnosis Date of Admission: 08/07/18 Date of Discharge: 08/09/18 - Primary Discharge Diagnosis Acute asthma exacerbation secondary to acute viral syndrome-rhinovirus Acute hypoxic respiratory failure secondary to above-resolved Ongoing nicotine abuse 1-2 pack/day smoker Obesity - Secondary Discharge Diagnosis Chronic Problems (Last Reviewed 01/05/18 @ 10:35 by BRANDO Honeycutt) Obesity (Chronic) Tobacco abuse (Chronic) Depression (Chronic) Hospital Course and Treatment Imaging Results: RAD/Chest 1 View (Portable) IMPRESSION: 1. Stable exam. Hypoinflation and bilateral atelectasis. Operations: None Procedures: None Summary of Care Provided: Hospital course: The patient is a 28 year old M with past medical history of asthma, obesity, nicotine abuse, smokes 1-2 packs/day, who presented the emergency room with complaints of shortness of breath. He had been in the emergency room 2 days prior and had left AMA with prednisone prescription. He did not improve and came back to the emergency room. He was found to be hypoxic at 86% and initially required 6 L/min of oxygen to maintain good saturations. He was also tachycardic, tachypneic, had a negative chest x-ray, and very wheezy on exam. He had a sick contact with similar symptoms. He was felt to have an acute asthma exacerbation with an acute viral syndrome. He was admitted to the PCU placed on telemetry, given aerosols and Solu-Medrol. He improved gradually over the next 2 days. He was ultimately able to be weaned off oxygen both at rest and with ambulation. He was transitioned to an oral prednisone taper, given a new prescription for an albuterol inhaler, and for a Brio inhaler. He did test positive for rhinovirus. He has seen Dr. Terry in the past for pulmonology. I have recommended that he follow-up with Dr. Terry in 1 week. He will also need to follow-up with his PCP in 1-2 weeks. He was instructed on the use of incentive spirometer. I also spent time with him discussing the importance of nicotine cessation with his underlying asthma. We discussed options for medical assistance with cessation. He declined all of them at this time, feels he can quit cold turkey at this time, and states that if he thinks he needs something to help him he will talk to his PCP about it in the future. He was discharged home in stable condition. This patient was seen by Obdulio Vasquez PA-C under the supervision of Doctor Faby. [] - Physical Exam General: Alert, Oriented x3, Cooperative HEENT: Atraumatic, PERRLA, EOMI, Normocephalic Neck: Supple, No JVD, Negative Carotid Bruits Lungs: Clear to auscultation, Normal air movement Cardiovascular: Regular rate, No murmurs Abdomen: Bowel Sounds Present, Soft, Non Tender, Obese Extremities: No edema, Capillary Refill Less than 3 Seconds Skin: No rashes, No breakdown Musculoskeletal: No Tenderness to Palpation of Joints or Extremities Neurological: Cranial nerves II-XII grossly intact Psych/Mental Status: Normal Affect, Appropriate Vital Signs Temp Pulse Resp BP Pulse Ox 98.0 F 68 16 147/99 H 96 08/09/18 08:29 08/09/18 12:35 08/09/18 12:35 08/09/18 12:35 08/09/18 12:35 Oxygen Flow Rate (L/min) [ 2 AMBULATION with Oxygen] Oxygen Flow Rate (L/min) 2 Oxygen Delivery Method Room Air Weight: 220 lb 7.396 oz Body Mass Index (BMI) 33.5 Intake and Output for Last 24 Hours 08/07/18 08/08/18 08/09/18 23:59 23:59 23:59 Intake Total 1000 / 1000 1760 / 1760 540 / 540 Balance 1000 / 1000 1760 / 1760 540 / 540 Microbiology Past 72 Hours 08/07/18 20:33 Respiratory Panel (PCR) - Final Mucosa - Nose Rhinovirus 08/07/18 20:33 Influenza Types A,B Direct FA (MAGGIE) - Final Mucosa - Nose Discharge Diet: No Restrictions Discharge Activity: Return to Normal Activity, - - No smoking Home Medications: Medications to take at Discharge Albuterol Sulfate [Proventil Hfa] 2 puff INHALATION Q4H PRN PRN #1 inhaler 08/09/18 Fluticasone/Vilanterol [Breo Ellipta 200-25 Mcg INH] 1 inh INHALATION QDAY #1 inhaler 08/09/18 Prednisone 10 mg PO UD #30 tab 08/09/18 Following Prescrptions Were Given to Patient: Albuterol Sulfate [Proventil Hfa] 2 puff INHALATION Q4H PRN PRN #1 inhaler PRN Reason: shortness of breath or wheezing Fluticasone/Vilanterol [Breo Ellipta 200-25 Mcg INH] 1 inh INHALATION QDAY #1 inhaler Prednisone 10 mg PO UD #30 tab Primary Care Physician: Care Physician,No Primary [Primary Care Provider] - Please follow up with your Primary Care Physician in: 1-2 weeks Please Follow Up With: Emiliano Terry DO When: 1 week Disposition: Home Minutes spent on discharge:: 35 Patient Condition:: Stable Medical Necessity - Tobacco Use Smoking Status: Heavy Smoker (>10/day) Tobacco Use: Cigarettes Meaningful Use Info Meaningful Use Diagnoses (Choose all that apply): None applicable <FabyJaylin Jazmyne - Last Filed: 08/09/18 14:34> Discharge Date and Diagnosis - Secondary Discharge Diagnosis Chronic Problems (Last Reviewed 01/05/18 @ 10:35 by BRANDO Honeycutt) Obesity (Chronic) Tobacco abuse (Chronic) Depression (Chronic) Hospital Course and Treatment Summary of Care Provided: Patient seen by Obdulio Vasquez PA-C under my supervision. The patient is a 28 year old M with past medical history of asthma who was admitted with complaint of shortness of breath for about 3 days. He had assisted upper respiratory tract symptoms such as cough, congestion and sore throat as well as chills. He had initially come to the ED and left AMA. However his symptoms persisted so he came into the ED very short of breath. On admission he was found to be hypoxic and saturating at 86% on room air. He required up to 6 L/min to maintain good saturation. Patient stated that he had been using his albuterol inhaler more frequently than usual and states he uses it several times a day. Patient was also on a preventative inhaler with flutica sone, Vilanterol but had not been using it. He was admitted and managed for acute hypoxic respiratory failure due to acute asthma exacerbation and asthma exacerbation due to an upper respiratory tract infection. He was put on breathing treatments and steroids as well as oxygen. Respiratory panel was negative for influenza and isolated human Michaels pneumo virus. Patient's improved significantly but desaturated on walking and required 2 L of oxygen to maintain saturation. He desaturated to 88% on room air and was up to 90% with 2 L of oxygen. This therefore qualified him for home oxygen. He remained stable and was discharged home on 08/09/2018 with a prescription for prednisone taper, albuterol inhaler and Breo inhaler, as well as with 2 L of home oxygen to use as needed for shortness of breath. Patient was also counseled strongly that he should quit smoking. He is to follow up with his PCP and was also referred to pulmonology on discharge. Patient seen and examined prior to discharge. He had no complaints and felt well. Shortness of breath had improved and review of systems otherwise negative. Labs and vitals reviewed. Home medications reviewed and reconciled. o/e: Vital Signs Height 5 ft 8 in Weight: 220 lb 7.396 oz Weight in Pounds 220.5 lbs Pulse Ox [AMBULATION with 92 Oxygen] Pulse Ox [AMBULATING on Room 90 Air] Pulse Ox [At REST on Room Air] 94 Pulse Ox 96 Temperature 98.0 F Pulse Rate 68 Respiratory Rate 16 Blood Pressure 147/99 Blood Pressure Position Semi-Fowlers [] General: Alert, Oriented x3, Cooperative HEENT: Atraumatic, PERRLA, EOMI, Normocephalic Neck: Supple, No JVD, Negative Carotid Bruits Lungs: mild wheezing in all lung [place] bilaterally, on 2L of oxygen Cardiovascular: Regular rate, No murmurs Abdomen: Bowel Sounds Present, Soft, Non Tender, Obese Extremities: No edema, Capillary Refill Less than 3 Seconds Skin: No rashes, No breakdown Musculoskeletal: No Tenderness to Palpation of Joints or Extremities Neurological: Cranial nerves II-XII grossly intact Psych/Mental Status: Normal Affect, Appropriate Plan as discussed above. - Physical Exam Vital Signs Temp Pulse Resp BP Pulse Ox 98.0 F 68 16 147/99 H 96 08/09/18 08:29 08/09/18 12:35 08/09/18 12:35 08/09/18 12:35 08/09/18 12:35 Oxygen Flow Rate (L/min) [ 2 AMBULATION with Oxygen] Oxygen Flow Rate (L/min) 2 Oxygen Delivery Method Room Air Weight: 220 lb 7.396 oz Body Mass Index (BMI) 33.5 Intake and Output for Last 24 Hours 08/07/18 08/08/18 08/09/18 23:59 23:59 23:59 Intake Total 1000 / 1000 1760 / 1760 540 / 540 Balance 1000 / 1000 1760 / 1760 540 / 540 Microbiology Past 72 Hours 08/07/18 20:33 Respiratory Panel (PCR) - Final Mucosa - Nose Rhinovirus 08/07/18 20:33 Influenza Types A,B Direct FA (MAGGIE) - Final Mucosa - Nose Code Visit Inpatient E&M: 54323 Disch Hosp
--- NOTE | 2018-08-10 14:34 | CASEMGMT ---
Addendum entered by Ana Pena 08/10/18 16:05: 1454 Pt called this RN CM back for d/c f/u call at this time. Pt states is doing 'a lot better' since discharge yesterday. Pt states he is working on making f/u appt's with new PCP and that he does have f/u scheduled with Dr. Terry and plans to keep it. Pt states no questions regarding discharge instructions or medications at this time. Pt states no suggestions for [facility] at this time and states that 'everything was great.' Pt voices no further questions/concerns/needs at this time. Robert BLISS CM Original Note: IZAIAH LOGAN Discharge F/U Phone Call LACE: 12 Strata: 4 Discharge date: 08/09/18 Call date: 08/10/18 Call time: 1435 Attempted to reach pt without success at this time, message left for pt to call this RN DOREEN back if/when able. Robert BLISS CM Admission dx: Asthma exacerbation w/ hypoxic resp failure
== END 2018-08-09 13:00 | disposition home or self-care (01) | DRG 189 ==
LOC: ED 17:16 → PCU 19:17
PROVIDERS: Admitting Provider Family Medicine; Emergency Provider Emergency Medicine; Visit Provider Student in an Organized Health Care Education/Training Program
DX: J96.01 Acute respiratory failure with hypoxia (principal); J45.901 Unspecified asthma with (acute) exacerbation; J06.9 Acute upper respiratory infection, unspecified; B97.89 Other viral agents as the cause of diseases classified elsewhere; F17.210 Nicotine dependence, cigarettes, uncomplicated; E66.9 Obesity, unspecified; Z68.33 Body mass index [BMI] 33.0-33.9, adult
CPT/HCPCS: 36415; 71045; 80048; 83735; 85025; 87633; 87804; 93005; 94640; 94762; 97802; 99283; 99406; A4216; J3475

== ENCOUNTER → 2018-09-05 12:43 | Outpatient (CLI) | payer SELFPAY ==
[2018-08-16 09:03] VITALS: BMI 34.8
[2018-08-16 12:34] VITALS: BMI 34.8
--- NOTE | 2018-09-06 15:48 | PFTCOMP ---
COMPLETE PULMONARY FUNCTION TEST INTERPRETATION Brief HPI: Patient is a 28 year old male, currently under the care of Dr. Terry, who presents to [facility] for complete pulmonary function tests secondary to diagnosis of dyspnea. Respiratory therapist reports good effort and reproducible results. Interpretation: Forced expiration spirometry shows no large airways obstructive ventilatory defect with an FEV1 of 64% predicted. There is no significant bronchodilator response by strict ATS criteria. Spirograms are of good quality and plateau normally. The respiratory flow volume loop shows a normal pattern. Lung volumes by body plethysmography show a decreased total lung capacity at 4.27 L, 64% predicted. All other lung volumes are reduced symmetrically. Diffusion capacity by carbon monoxide is decreased at 70% predicted. The airway resistance is normal. Compared to previous pulmonary function tests from 12/31/2017, there has been a significant improvement in FVC, FEV1 and TLC by 15%, 23% and 20% respectively. Impression: Moderate restrictive ventilatory defect with a symmetric reduction diffusion capacity. There has been significant improvement since December 2017.
== END ==
PROVIDERS: Referring Provider Nurse Practitioner Acute Care; Visit Provider Nurse Practitioner Acute Care
DX: R06.00 Dyspnea, unspecified (principal)
CPT/HCPCS: 94060; 94726; 94729

== ENCOUNTER → 2018-09-07 15:46 | Outpatient (CLI) | payer SELFPAY ==
[2018-09-07 14:40] VITALS: BMI 34.8
[2018-09-07 17:10] LABS: Absolute Lymphocyte Count 2.44 X10^3/ul (0.83-4.51); Absolute Neutrophil Count 3.9 X10^3/uL (2.0-7.7); Basophil# 0.03 X10^3/uL; Basophil% 0.4 % (0-1); Eosinophils% 2.8 % (0-5); Hematocrit 47.2 % (40-54); Hemoglobin 15.6 g/dl (13.0-16.5); Lymphocyte # 2.44 X10^3/ul (4.0); Lymphocyte % 33.7 % (19-41); Mean Corp Hgb Conc 33.1 g/gl (32-36); Mean Corpuscular Hgb 30.9 pg (27.0-32.0); Mean Corpuscular Volume 93.5 fL (80-94); Mean Platelet Vol. 10.5 fl (6.2-12.0); Monocyte# 0.67 X10^3/uL; Monocyte% 9.2 % (0-10); Neutrophil # 3.89 X10^3/uL (2.7-7.7); Neutrophil % 53.6 % (47-70); Platelet Count 289 K/mm3 (150-450); RBC Distribution Width CV 12.4 % (11.6-14.6); RBC Distribution Width SD 41.9 fl (35.1-43.9); Red Blood Count 5.05 M/mm3 (4.6-6.2); White Blood Count 7.3 K/mm3 (4.4-11.0)
[2018-09-07 17:11] LABS: POSITIVE COUNT NO; POSITIVE DIFFERENTIAL NO; POSITIVE MORPHOLOGY NO
== END ==
PROVIDERS: Family Provider Internal Medicine; PCP Internal Medicine; Referring Provider Internal Medicine; Visit Provider Internal Medicine
DX: J45.901 Unspecified asthma with (acute) exacerbation (principal)
CPT/HCPCS: 36415; 85025

== ENCOUNTER → 2019-04-05 08:35 | Outpatient (CLI) | payer MEDICAID, SELFPAY ==
[2019-04-05 08:09] VITALS: BMI 33.9
[2019-04-05 14:28] LABS: Absolute Lymphocyte Count 1.66 X10^3/uL (0.83-4.51); Absolute Neutrophil Count 3.3 X10^3/uL (2.0-7.7); Basophil# 0.03 X10^3/uL; Basophil% 0.5 % (0-1); Eosinophil# 0.18 X10^3/uL; Eosinophils% 3.2 % (0-5); Hematocrit 48.2 % (40-54); Hemoglobin 15.7 g/dL (13.0-16.5); Lymphocyte # 1.66 X10^3/ul (4.0); Lymphocyte % 29.5 % (19-41); Mean Corp Hgb Conc 32.6 g/dL (32-36); Mean Corpuscular Hgb 31.2 pg (27.0-32.0); Mean Corpuscular Volume 95.6 fL (80-94); Mean Platelet Vol. 10.9 fl (6.2-12.0); Monocyte# 0.42 X10^3/uL; Monocyte% 7.5 % (0-10); NRBC Flagged by Analyzer 0 % (0-5); Neutrophil # 3.31 X10^3/uL (2.7-7.7); Neutrophil % 58.8 % (47-70); Platelet Count 253 K/mm3 (150-450); RBC Distribution Width CV 12.3 % (11.6-14.6); RBC Distribution Width SD 43.5 fl (35.1-43.9); Red Blood Count 5.04 M/mm3 (4.6-6.2); White Blood Count 5.6 K/mm3 (4.4-11.0)
[2019-04-05 14:48] LABS: Vitamin B12 436 pg/mL (211-911)
[2019-04-05 14:58] LABS: ALB/GLOB Ratio 1.3 RATIO (0.9-2.4); AST(SGOT) 52 U/L (15-37); Alanine Aminotransfer ALT/SGPT 141 U/L (16-61); Albumin, Serum 4.2 g/dL (3.2-5.0); Alkaline Phosphatase 51 U/L (45-117); Anion Gap 8 (5-15); BUN 15 mg/dL (7-18); BUN/Creat Ratio 14.3 RATIO (10-20); Calcium,Total 8.6 mg/dL (8.5-10.1); Chloride 105 mmol/L (98-107); Creatinine, Serum 1.05 mg/dL (0.70-1.30); EST Glomerular Filtration Rate 88 mL/min (>60); Est Glom Filt Rate - Afr Amer 106 mL/min (>60); Globulin 3.3 g/dL (2.2-4.2); Glucose 101 mg/dL (74-106); Potassium 4.1 mmol/L (3.5-5.1); Protein, Total 7.5 g/dL (6.4-8.2); Sodium Level 140 mmol/L (136-145); T4 Free Direct 0.64 ng/dL (0.76-1.46)
== END ==
PROVIDERS: Family Provider Internal Medicine; PCP Internal Medicine; Visit Provider Internal Medicine
DX: F32.9 Major depressive disorder, single episode, unspecified (principal)
CPT/HCPCS: 36415; 80053; 82607; 84439; 84443; 85025

== ENCOUNTER → 2019-05-29 08:04 | Outpatient (CLI) | payer MEDICAID, SELFPAY ==
[2019-04-18 08:23] VITALS: BMI 33.9
[2019-05-29 12:26] LABS: Thyroid Stim Hormone (TSH) 8.72 uIU/mL (0.358-3.74)
== END ==
PROVIDERS: Family Provider Internal Medicine; PCP Internal Medicine; Visit Provider Internal Medicine
DX: E03.9 Hypothyroidism, unspecified (principal)
CPT/HCPCS: 36415; 84443

== ENCOUNTER → 2019-08-24 08:07 | Outpatient (CLI) | payer MEDICAID, SELFPAY ==
[2019-08-02 13:54] VITALS: BMI 33.9
[2019-08-24 13:23] LABS: Thyroid Stim Hormone (TSH) 5.36 uIU/mL (0.358-3.74)
== END ==
PROVIDERS: PCP Internal Medicine; Referring Provider Internal Medicine; Visit Provider Internal Medicine
DX: E03.9 Hypothyroidism, unspecified (principal)
CPT/HCPCS: 36415; 84443

== ENCOUNTER → 2019-11-28 08:29 | Outpatient (CLI) | payer MEDICAID, SELFPAY ==
[2019-08-28 08:17] VITALS: BMI 33.9
[2019-11-28 13:00] LABS: Absolute Lymphocyte Count 1.96 X10^3/uL (0.83-4.51); Absolute Neutrophil Count 3.9 X10^3/uL (2.0-7.7); Basophil# 0.04 X10^3/uL; Basophil% 0.6 % (0-1); Eosinophil# 0.19 X10^3/uL; Eosinophils% 2.8 % (0-5); Hematocrit 49.7 % (40-54); Lymphocyte # 1.96 X10^3/ul (4.0); Mean Corp Hgb Conc 32.2 g/dL (32-36); Mean Corpuscular Hgb 30.8 pg (27.0-32.0); Mean Corpuscular Volume 95.8 fL (80-94); Mean Platelet Vol. 11.1 fl (6.2-12.0); Monocyte# 0.61 X10^3/uL; NRBC Flagged by Analyzer 0 % (0-5); Neutrophil # 3.94 X10^3/uL (2.7-7.7); Neutrophil % 58.2 % (47-70); Platelet Count 252 K/mm3 (150-450); RBC Distribution Width CV 12.7 % (11.6-14.6); RBC Distribution Width SD 43.7 fl (35.1-43.9); Red Blood Count 5.19 M/mm3 (4.6-6.2); White Blood Count 6.8 K/mm3 (4.4-11.0)
== END ==
LOC: EPLAB 08:29 → BIMLAB 11:52
PROVIDERS: PCP Internal Medicine; Visit Provider Internal Medicine
DX: E03.9 Hypothyroidism, unspecified (principal); F32.9 Major depressive disorder, single episode, unspecified
CPT/HCPCS: 36415; 84443; 85025

== ENCOUNTER → 2020-01-29 09:05 | Outpatient (CLI) | payer MEDICAID, SELFPAY ==
[2019-08-28 08:17] VITALS: BMI 33.9
== END ==
PROVIDERS: PCP Internal Medicine; Visit Provider Internal Medicine
DX: E03.9 Hypothyroidism, unspecified (principal)
CPT/HCPCS: 36415; 84443

== ENCOUNTER → 2020-02-01 08:23 | Outpatient (CLI) | payer MEDICAID, SELFPAY ==
[2020-01-31 18:13] VITALS: BMI 33.9
[2020-02-01 11:28] LABS: HIV - WCH Non-Reactive (Nonreactive)
[2020-02-03 03:07] LABS: Chlamydia By Nucleic Acid AMP Negative (Negative)
[2020-02-03 07:32] LABS: Gonococcus By Nucleic Acid AMP Negative (Negative)
[2020-02-08 05:27] LABS: Rapid Plasmin Reagin (RPR) NONREACTIVE (NONREACTIVE)
== END ==
PROVIDERS: PCP Internal Medicine; Referring Provider Internal Medicine; Visit Provider Internal Medicine
DX: Z11.3 Encounter for screening for infections with a predominantly sexual mode of transmission (principal)
CPT/HCPCS: 36415; 86592; 86703; 87255; 87491; 87591

== ENCOUNTER → 2020-03-19 08:25 | Outpatient (CLI) | payer MEDICAID, SELFPAY ==
[2020-03-13 16:42] VITALS: BMI 33.9
[2020-03-19 12:46] LABS: Thyroid Stim Hormone (TSH) 6.28 uIU/mL (0.358-3.74)
== END ==
PROVIDERS: PCP Internal Medicine; Referring Provider Internal Medicine; Visit Provider Internal Medicine
DX: E03.9 Hypothyroidism, unspecified (principal)
CPT/HCPCS: 36415; 84443

== ENCOUNTER 2020-05-20 14:50 | Emergency (ER) | payer MEDICAID, SELFPAY ==
[2020-03-13 16:42] VITALS: BMI 33.9
[2020-05-20] VITALS (9 sets, daily range): BP systolic 105–137; BP diastolic 56–84; PULSE 72–97; RESP 18–28; TEMP 37.2; O2SAT 93–96; BMI 35.2
--- NOTE | 2020-05-20 15:00 | EKG12_ITS ---
Test Reason : Blood Pressure : / mmHG Vent. Rate : 089 BPM Atrial Rate : 089 BPM P-R Int : 136 ms QRS Dur : 082 ms QT Int : 334 ms P-R-T Axes : 055 001 046 degrees QTc Int : 406 ms Normal sinus rhythm with sinus arrhythmia Normal ECG Confirmed by EDWIGE HARRIS, RAFIA ([id number]), health editor NILES MARQUEZ ([id number]) on 05/22/2020 12:57:20 PM Referred By: HELEN Confirmed By:RAFIA GIBBONS MD
--- NOTE | 2020-05-20 15:16 | ED.VIS.PSYCH ---
History of Present Illness Chief Complaint: Suicidal Informant: Patient Onset: Weeks - 1 Context: Gradual Onset Conflict: Family - recent divorce Timing: Continuous Current Severity: Severe Maximum Severity: Severe Worsened by: Situational factors Associated Symptoms: Depressed, Change in Eating, Change in sleeping, Decreased Interest, Hopelessness, Suicidal Thoughts Specific plan (suicidal thought): use gun to shoot himself in head, overdose when gun not avail Narrative: Patient's been feeling suicidal. He did not have the code to his gun safe, asked his recent ex- to open it for him, she refused, given that he was doing it so that he could blow his brains out, and as a result of not having access to the gun, swallowed a handful of his Effexor that he takes for depression. This was at 1400, just about 1 hour prior to evaluation. States he feels nauseated but has no other physical complaints except for feeling depressed. He denies any coingestions, he denies using any drugs, has not had any alcohol recently. No recent illness including respiratory symptoms. Has not had COVID-19. No known exposures to it. - Past Medical History (1) Asthma Status: Chronic (2) Depression Status: Chronic (3) Hypothyroidism Status: Chronic Past Medical History - Allergies and Home Meds Allergies/Adverse Reactions: Allergies No Known Allergies Allergy (Verified 05/20/20 14:52) Primary Care Physician: Tereza Wong MD [Primary Care Provider] - Surgical History: no surgical history Lives: Spouse/ Significant Other Smoking Status: Current every day smoker - Family History Maternal Family History: Family History (Last Reviewed 01/31/20 @ 17:22 by Amelie Byrne) Father Colon cancer Grandfather Colon cancer Grandmother Cancer Asthma Family History: Reports: No pertinent history Paternal Family History: Family History (Last Reviewed 01/31/20 @ 17:22 by Amelie Byrne) Father Colon cancer Grandfather Colon cancer Grandmother Cancer Asthma Family History: Reports: No pertinent history Review of Systems General: Denies: Chills, Fever, Sweats Eyes: Denies: Visual changes - bilaterally, Diplopia ENT: Denies: Rhinorrhea, Sore throat Cardiovascular: Denies: Chest pain, Palpitations Respiratory: Denies: Dyspnea, Cough, Dyspnea on exertion Gastrointestinal: Reports: Nausea. Denies: Abdominal pain, Vomiting, Diarrhea, Melena, Hematochezia Genitourinary: Denies: Dysuria, Hematuria, Frequency Musculoskeletal: Denies: Back pain, Extremity Pain Skin: Denies: Rash, Wounds Neurological: Denies: Headache, Weakness, Numbness Psych: Reports: Depression, Suicidal thoughts, Suicidal ideations Physical Exam Vital Signs/Narrative: Vital Signs Temp Pulse Resp BP 05/20/20 14:53 99.0 F 97 18 129/81 H Inital Vital Signs reviewed: Yes General: Well nourished, Well developed, - - NAD, keenly alert Head: Normocephalic, Atraumatic Eyes: Perrl, EOMI ENT: Moist mucous membranes, No rhinorrhea Neck: Supple, Nontender Cardiovascular: Regular rate, Regular rhythm, No murmurs Respiratory: No distress, CTA bilaterally, Chest nontender Abdomen: Soft, Nontender, Nondistended, Normal bowel sounds Back: Nontender, Normal Inspection Extremities: Nontender, No Edema Skin: Normal color, No rash Neurological: Alert, Oriented x3, Cranial nerves II-XII grossly intact, Normal Strength, Normal Sensation Psych: Logical sequential goal directed thoughts, Good Insight, Poverty of Speech, Suicidal thoughts, Poor Judgement. Negative for: Homicidal thoughts, Hallucinations, Delusions Diagnostic/Tx/Re-eval - Rhythm Strip Rhythm Strip: Sinus Rhythm Rate: 90 Ectopy: None - EKG Initial EKG Interpretation: Sinus Rhythm, No Acute Injury Pattern - normal intervals Patient was given Zofran for his nausea in addition to 15 g oral activated charcoal which patient drank without difficulty. At the time of this dictation he has been observed for 2 hours, and clinically is doing fine. After discussion with poison control and discussing the lab results, they recommend repeating his liver enzymes to ensure that they are not trending up as if he had a relatively remote acetaminophen toxicity that he is not admitting to, in addition to watching him on the monitor for signs of ventricular dysrhythmias which can occur in large overdoses, repeating an EKG to confirm that he does not have any widening of OR, QRS, QT intervals which at this time he does not, and he needs to be observed for a minimum of 11 hours given that it is an extended release medication that has an active metabolite. If he is still asymptomatic at 1 AM and has had no seizure activity or the above issues, he is able to be medically cleared for psychiatric evaluation and placement. He is under pink slip hold at this time. ED Disposition - Plan for ED Patient: Disposition: Psychiatric Hospital or Unit Diagnosis: Suicidal ideation, Suicide gesture, Antidepressant overdose Referrals: Tereza Wong MD [Primary Care Provider] -
[2020-05-20] MEDS: Ondansetron ODT 4 MG Tablet 8 MG PO (15:42)
[2020-05-20] MEDS: Activated Charcoal 25 GM/120 ML BOT PO (16:04)
--- NOTE | 2020-05-20 16:15 | CM.ED ---
SOCIAL WORK ASSESSMENT Informant: Dr. Gonzalez Reason for Consult: Suicide attempt by overdose of Venlafaxine XR 150mg Chief Compliant: Patient brought in by squad and [place] by [employer] Police. Police report patient was in argument with wanting code for gun safe to harm self. When would not give code patient took 13-15 Venlafaxine in attempt to harm self. Marital/Social History: . Patient reports getting . Living Situation: Currently living with Support/Resources: Patient states no one. 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 Patient reports is prescribed Venlafaxine. Patient states followed with [facility] in the past. Coping Skills: smoke cigarettes Abuse Issues: Patient denies any history of emotional, physical or sexual abuse. Substance Abuse History: Patient denies any history of substance use. Risk to Self/Others: Suicidal- Patient admits to suicidal ideation. Patient attempted by overdose of Venlafaxine when would not give him code to gun safe. Homicidal- Patient denies any homicidal ideation. Mental Status Exam: Orientation-A&Ox3 Memory- Fair Appearance/General Behavior: disheveled, agitated Mood/Affect: flat, depressed, anxious Communication Pattern: responds to questions Thought Process: appropriate Judgment: poor Assessment: Met with patient in room. Sitter protocol in place. Introduced role and reason for referral. Patient admits to ingesting 13-15 Venlafaxine in attempt to harm self. Patient reports no prior history of attempt. Patient admits to depression and anxiety and states used to follow with [facility]. Patient states wishes to leave. Educated patient on [place] and need for inpatient psych stabilization. Patient cooperative at this time. Collaboration with Dr. Gonzalez. Dr. Gonzalez to discuss case with Poison Control. Once medically cleared will refer for inpatient psych. This worker to assist with facilitating placement. Plan: Referral for inpatient psych stabilization due to suicide attempt by overdose Edu Bonilla, IP COUNSEL, DIRECTOR OF AUTOMATION
[2020-05-20 16:18] LABS: Bacteria 0 SEEN /hpf (None Seen); Mucous, Urine 0 SEEN /hpf (<or=2+); Red Blood Cells-Urine 0 SEEN /hpf (0-5); Squamous Epithelial Cells - UA 0 SEEN /hpf (0-5); White Blood Cells 0 SEEN /hpf (0-5)
[2020-05-20 16:20] LABS: Absolute Lymphocyte Count 1.51 X10^3/uL (0.83-4.51); Absolute Neutrophil Count 8.3 X10^3/uL (2.0-7.7); Basophil# 0.04 X10^3/uL; Basophil% 0.4 % (0-1); Eosinophil# 0.09 X10^3/uL; Eosinophils% 0.8 % (0-5); Hematocrit 49.4 % (40-54); Hemoglobin 16.8 g/dL (13.0-16.5); Lymphocyte # 1.51 X10^3/ul (4.0); Lymphocyte % 14.2 % (19-41); Mean Corpuscular Hgb 32.1 pg (27.0-32.0); Mean Corpuscular Volume 94.5 fL (80-94); Mean Platelet Vol. 10.4 fl (6.2-12.0); Monocyte# 0.66 X10^3/uL; Monocyte% 6.2 % (0-10); NRBC Flagged by Analyzer 0 % (0-5); Neutrophil # 8.31 X10^3/uL (2.7-7.7); Neutrophil % 77.9 % (47-70); Platelet Count 271 K/mm3 (150-450); RBC Distribution Width CV 12.4 % (11.6-14.6); RBC Distribution Width SD 42.5 fl (35.1-43.9); Red Blood Count 5.23 M/mm3 (4.6-6.2); White Blood Count 10.7 K/mm3 (4.4-11.0)
[2020-05-20 16:29] LABS: Color, Urine Yellow (Yellow); Glucose, Dipstick Normal (Normal); Ketone-Dipstick Negative (Negative); Leukocyte Esterase-Dipstick Negative /ul (Negative); Nitrite-Dipstick Negative (Negative); Occult Blood-Urine Negative /ul (Negative); Protein-Dipstick 15 mg/dl (Negative); Specific Gravity, Urine 1.005 (1.002-1.030); Urine Bilirubin Dipstick Negative (Negative); Urine Clarity Clear (Clear); Urine Urobilinogen Normal (Normal)
[2020-05-20 16:30] LABS: Amphetamine Urine VISTA NEGATIVE (<1000 ng/mL); Barbiturate Urine VISTA NEGATIVE (< 200 ng/mL); Benzodiazepine Urine VISTA NEGATIVE (< 200 ng/mL); Cocaine Urine VISTA NEGATIVE (< 300 ng/mL); Ecstacy Urine VISTA NEGATIVE (< 500 ng/mL); Methadone Urine VISTA NEGATIVE (< 300 ng/mL); PCP Urine VISTA NEGATIVE (< 25 ng/mL); THC Urine VISTA NEGATIVE (< 50 ng/mL); Vista UDS pH Range 6
[2020-05-20 16:34] LABS: ALB/GLOB Ratio 1.2 RATIO (0.9-2.4); AST(SGOT) 55 U/L (15-37); Alanine Aminotransfer ALT/SGPT 178 U/L (16-61); Albumin, Serum 4.3 g/dL (3.2-5.0); Alkaline Phosphatase 65 U/L (45-117); Anion Gap 3 (5-15); BUN 11 mg/dL (7-18); Calcium,Total 9.1 mg/dL (8.5-10.1); Chloride 108 mmol/L (98-107); Creatinine, Serum 0.92 mg/dL (0.70-1.30); EST Glomerular Filtration Rate 102 mL/min (>60); Est Glom Filt Rate - Afr Amer 123 mL/min (>60); Estimated Creatinine Clearance 112.55 ml/min; Globulin 3.7 g/dL (2.2-4.2); Glucose 88 mg/dL (74-106); Potassium 3.9 mmol/L (3.5-5.1); Sodium Level 141 mmol/L (136-145)
[2020-05-20 17:05] LABS: Acetaminophen (Tylenol) Level < 2.0 ug/mL (10.0-30.0); Alcohol, Blood (Medical)-Serum < 3.0 mg/dL; Salicylate 2.2 mg/dL (2.8-20.0)
--- NOTE | 2020-05-20 17:08 | CM.ED ---
SOCIAL WORK Discussed case with Dr. Gonzalez. Per Dr. Gonzalez, Poison Control reports patient will need to be observed for 11 hours. Anticipate medical clearance around 1AM. Edu Bonilla MSW, [employer]
[2020-05-20 21:53] LABS: AST(SGOT) 56 U/L (15-37); Alanine Aminotransfer ALT/SGPT 176 U/L (16-61); Albumin, Serum 4.3 g/dL (3.2-5.0); Alkaline Phosphatase 64 U/L (45-117); Bilirubin, Direct 0.15 mg/dL (0.00-0.30); Globulin 3.6 g/dL (2.2-4.2); Protein, Total 7.9 g/dL (6.4-8.2)
--- NOTE | 2020-05-20 22:57 | ED.RN ---
POISON CONTROL AND UPDATED ON PATIENT CONDITION AND STATUS. THEY SUGGESTED ADDITIONAL ORDERS. SPOKE WITH DR. HAMPTON AT THIS TIME. ORDERS TO BE PLACED
[2020-05-20 23:41] LABS: AST(SGOT) 46 U/L (15-37); Alanine Aminotransfer ALT/SGPT 153 U/L (16-61); Albumin, Serum 3.7 g/dL (3.2-5.0); Alkaline Phosphatase 60 U/L (45-117); Bilirubin, Direct 0.15 mg/dL (0.00-0.30); Globulin 3.4 g/dL (2.2-4.2); Protein, Total 7.1 g/dL (6.4-8.2)
[2020-05-20 23:47] LABS: Salicylate 2.1 mg/dL (2.8-20.0)
[2020-05-21] VITALS: BP 166/87; PULSE 64; RESP 29; TEMP 36.5; O2SAT 94
[2020-05-21 01:00] VITALS: BP 138/77; PULSE 58; RESP 24; O2SAT 94
--- NOTE | 2020-05-21 01:58 | ED.RN ---
poison control called and updated on patient and condition
--- NOTE | 2020-05-21 01:59 | ED.RN ---
patient has been accepted to [facility] unit Dr. Damian nurse to nurse
[2020-05-21 02:00] VITALS: BP 115/56; PULSE 69; RESP 23; O2SAT 94
[2020-05-21 03:00] VITALS: BP 156/86; PULSE 62; RESP 25; O2SAT 97
== END 2020-05-21 04:03 ==
PROVIDERS: Emergency Medicine; Emergency Provider Emergency Medicine; PCP Internal Medicine
DX: T43.212A Poisoning by selective serotonin and norepinephrine reuptake inhibitors, intentional self-harm, initial encounter (principal); R11.0 Nausea; Y92.9 Unspecified place or not applicable; F32.9 Major depressive disorder, single episode, unspecified; E03.9 Hypothyroidism, unspecified; J45.909 Unspecified asthma, uncomplicated; F17.200 Nicotine dependence, unspecified, uncomplicated; Z79.899 Other long term (current) drug therapy
CPT/HCPCS: 36415; 80053; 80076; 80307; 80320; 80329; 81001; 85025; 87426; 93005; 99285; G0480

== ENCOUNTER → 2020-06-12 08:24 | Outpatient (CLI) | payer MEDICAID, SELFPAY ==
[2020-06-12 08:11] VITALS: BMI 35.2
== END ==
PROVIDERS: PCP Internal Medicine; Visit Provider Internal Medicine
DX: E03.9 Hypothyroidism, unspecified (principal)
CPT/HCPCS: 36415; 84443

== ENCOUNTER → 2020-09-30 19:58 | Outpatient (CLI) | payer MEDICAID, SELFPAY ==
[2020-06-26 14:51] VITALS: BMI 35.1
== END ==
PROVIDERS: PCP Internal Medicine; Referring Provider Internal Medicine; Visit Provider Internal Medicine
DX: G47.10 Hypersomnia, unspecified (principal)
CPT/HCPCS: 95810

== ENCOUNTER → 2020-10-21 20:30 | Outpatient (CLI) | payer MEDICAID, SELFPAY ==
[2020-06-26 14:51] VITALS: BMI 35.1
== END ==
PROVIDERS: PCP Internal Medicine; Visit Provider Internal Medicine
DX: G47.33 Obstructive sleep apnea (adult) (pediatric) (principal)
CPT/HCPCS: 95811